=== PATIENT | female | born 1940 | race Caucasian/White ===

== ENCOUNTER → 2016-11-15 | Outpatient (CLI) | payer MEDICARE, MEDICAID ==
[~2016-11-15] MED LIST: BACTROBAN OINT22 GM PO; CEFADROXIL500 MG PO; CHOLESTEROL; CLINDAMYCIN150 MG PO; DARVOCET N 1001 TAB PO; DEMEDEX; HYZAAR 50/12.5M1 TAB; LISINOPRIL; LISINOPRIL/HCTZ; LISINOPRIL10 MG PO; Meclizine25 MG PO; NAPROSYN500 MG PO; NAPROXEN550 MG PO; NORCO 325 MG-51 TAB PO; OMEPRAZOLE20 MG; PRILOSEC OTC20 MG PO; SIMVASTATIN20 MG PO; SOMA250 MG PO; ULTRAM50 MG PO; Vicodin 5/500 505 MG PO
[2016-11-15 10:50] LABS: HEMATOCRIT 33.1 % (37.0-47.0); HEMOGLOBIN 10.9 g/dl (12.0-16.0); MEAN CELL VOLUME 98.2 fl (81.0-99.0); MEAN CORPUSCULAR HGB 32.3 pg (27.0-31.0); MEAN CORPUSCULAR HGB CONC 32.9 g/dl (33.0-37.0); MEAN PLATELET VOLUME 9.4 fl (9.6-12.3); RED BLOOD COUNT 3.37 10*6/uL (4.10-5.10); RED CELL DISTRI WIDTH 12.6 % (0-14.5); WHITE BLOOD COUNT 9.9 10*3/uL (4.8-10.8)
[2016-11-15 11:15] LABS: ALBUMIN 3.7 gm/dl (3.1-4.5); BILIRUBIN, TOTAL 0.3 mg/dl (0.2-1.0); POTASSIUM 3.8 mmol/L (3.5-5.1); TOTAL PROTEIN 6.9 gm/dL (6.4-8.2)
[2016-11-15 11:17] LABS: CHOLESTEROL 211 mg/dL (<200); HDL CHOLESTEROL 52 mg/dl (40-60); LDL CHOLESTEROL 97 mg/dL (9-159); TRIGLYCERIDES 312 mg/dl (<150); VLDL CHOLESTEROL 62 mg/dL (6-40)
== END | disposition home or self-care (01) ==
LOC: LAB 10:28
PROVIDERS: Family Medicine
DX: K21.9 Gastro-esophageal reflux disease without esophagitis (principal); E78.00 Pure hypercholesterolemia, unspecified; E55.9 Vitamin D deficiency, unspecified

== ENCOUNTER → 2017-10-06 | Outpatient (CLI) | payer MEDICARE, MEDICAID ==
[2017-10-06 11:15] LABS: HEMATOCRIT 33.9 % (37.0-47.0); HEMOGLOBIN 11.4 g/dl (12.0-16.0); MEAN CELL VOLUME 95.5 fl (81.0-99.0); MEAN CORPUSCULAR HGB 32.1 pg (27.0-31.0); MEAN CORPUSCULAR HGB CONC 33.6 g/dl (33.0-37.0); RED BLOOD COUNT 3.55 10*6/uL (4.10-5.10); RED CELL DISTRI WIDTH 12.3 % (0-14.5); WHITE BLOOD COUNT 7.3 10*3/uL (4.8-10.8)
[2017-10-06 11:36] LABS: ALBUMIN 3.5 gm/dl (3.1-4.5); CREATININE 1.22 mg/dL (0.55-1.02); POTASSIUM 3.9 mmol/L (3.5-5.1)
[2017-10-06 12:53] LABS: VITAMIN D, 25-HYDROXY 80.4 ng/mL (30-100)
== END | disposition home or self-care (01) ==
LOC: LAB 10:40
PROVIDERS: Family Medicine
DX: E78.00 Pure hypercholesterolemia, unspecified (principal); E55.9 Vitamin D deficiency, unspecified; D64.9 Anemia, unspecified; I10 Essential (primary) hypertension; R53.83 Other fatigue; K21.9 Gastro-esophageal reflux disease without esophagitis

== ENCOUNTER → 2018-01-03 | Outpatient (CLI) | payer MEDICARE, MEDICAID ==
[2018-01-03 11:35] LABS: HEMATOCRIT 35.4 % (37.0-47.0); HEMOGLOBIN 11.2 g/dl (12.0-16.0); MEAN CELL VOLUME 95.9 fl (81.0-99.0); MEAN CORPUSCULAR HGB 30.4 pg (27.0-31.0); MEAN CORPUSCULAR HGB CONC 31.6 g/dl (33.0-37.0); MEAN PLATELET VOLUME 9.5 fl (9.6-12.3); RED BLOOD COUNT 3.69 10*6/uL (4.10-5.10); RED CELL DISTRI WIDTH 13.2 % (0-14.5); WHITE BLOOD COUNT 7.3 10*3/uL (4.8-10.8)
[2018-01-03 12:02] LABS: ALBUMIN 3.4 gm/dl (3.1-4.5); CREATININE 1.29 mg/dL (0.55-1.02); POTASSIUM 4.2 mmol/L (3.5-5.1); TOTAL PROTEIN 7.1 gm/dL (6.4-8.2)
== END | disposition home or self-care (01) ==
LOC: LAB 11:08
PROVIDERS: Family Medicine
DX: N18.3 Chronic kidney disease, stage 3 (moderate) (principal); D63.1 Anemia in chronic kidney disease; E78.00 Pure hypercholesterolemia, unspecified; E53.8 Deficiency of other specified B group vitamins

== ENCOUNTER 2019-05-08 15:11 | Inpatient (IN) | payer OTHER ==
[~2019-05-08] VITALS: Ht 160 cm; Wt 66.2 kg
--- NOTE | ~2019-05-08 | ST ---
[place], [place] EXERCISE STRESS TEST REPORT NAME: LACI SÁNCHEZ [facility] #: [id number] UNIT #: [id number] ROOM: 408 DOCTOR: CARINE MCKENZIE MD BIRTHDATE: [birth year] DOS: 05/09/2019 LEXISCAN STRESS EKG REPORT REFERRING PHYSICIAN: Dr. Graf. INDICATION: Precordial chest pain. The patient underwent standard protocol Lexiscan stress EKG. Baseline EKG showed normal sinus, heart rate of 71 with blood pressure 112/58. Peak heart rate was 115 with a blood pressure 130/68. The patient had no chest pain, no ischemic changes. No significant arrhythmias. SUMMARY OF FINDINGS: Unremarkable Lexiscan stress EKG. Please see separate report for perfusion scan imaging results. CARINE MCKENZIE MD CM:STRESS:EXERCISE STRESS TEST REPORT [id number] CARINE MCKENZIE MD
--- NOTE | ~2019-05-08 | EKG ---
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
--- NOTE | ~2019-05-08 | EKG ---
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
--- NOTE | ~2019-05-08 | WRIGHTHP ---
[place], [place] PATIENT HISTORY AND PHYSICAL EXAM NAME: LACI SÁNCHEZ [facility] #: [id number] UNIT #: [id number] ROOM: 408 DOCTOR: CAMILO SMILEY MD BIRTHDATE: [birth year] DOS: 05/08/2019 HISTORY OF PRESENT ILLNESS: The patient is a 78-year-old female with a past medical history of: 1. Benign essential hypertension, generalized anxiety disorder, hiatal hernia. 2. Hyperlipidemia, nicotine smoke dependence, chronic lower back arthritic pains. 3. Skin cancer of the right temporal area. The patient presented to the Emergency Department with complaints of left-sided chest pains and left arm pains, recurrent for a couple of weeks. The patient is at high risk for coronary artery disease because of smoking cigarettes, high cholesterol, and hypertension. The patient was admitted and Cardiology was consulted. Cardiac enzymes are being performed. It was slightly elevated. REVIEW OF SYSTEMS CARDIOVASCULAR: Recurrent chest pain. GASTROINTESTINAL: No nausea, vomiting, diarrhea or constipation. RESPIRATORY: Chronic shortness of breath. ALLERGIES: No known drug allergies. PHYSICAL EXAMINATION: GENERAL: Alert and oriented x 3, generalized weakness. VITAL SIGNS: Blood pressure 142/51, heart rate 69 beats per minute, breathing 16 times per minute, temperature 98 degrees Fahrenheit. HEENT AND NECK: Extraocular movements are intact. Sclerae are anicteric. Oral mucosa is moist and clean. No obvious facial weakness. Neck is supple without any lymphadenopathy. No thyromegaly. No JVD. No carotid arterial bruits. LUNGS: Decreased breath sounds on lung auscultation all over. CARDIOVASCULAR SYSTEM: Heart rate is regular in rate and rhythm. S1 and S2 normally audible. No significant murmur or any other abnormal cardiac sounds. ABDOMEN: Soft, nontender. No obvious organomegaly. Bowel sounds are present. No obvious herniation. EXTREMITIES: Without significant cyanosis or edema. Warm to touch. CENTRAL NERVOUS SYSTEM: Alert and oriented x 3. Cranial nerves II-XII are intact. Speech is normal. The patient is able to move all extremities. Normal muscle strength. Deep tendon reflexes are equal on both sides. Plantars were downgoing. LABORATORY DATA: Mild elevation of troponin levels. Cardiology consult. Chest x-ray showing opacity in the left lower lung zone, hemoglobin 10.7. IMPRESSION: 1. Recurrent left-sided and precordial chest pain and left arm, chest pains, being evaluated by Cardiology. Cardiac enzymes negative so far. 2. Smoking history with left lower lobe opacity to be evaluated for malignancy by Dr. Varela. Consult is being obtained. 2. Mixed hyperlipidemia, diet controlled. 3. Centrilobular emphysema. The patient on DuoNebs for advanced lung disease. [place], [place] PATIENT HISTORY AND PHYSICAL EXAM NAME: [facility] [id number] UNIT #: [id number] ROOM: [facility] DOCTOR: CAMILO SMILEY MD BIRTHDATE: [birth year] 4. POLLEN ALLERGIES. Treated and controlled with loratadine. 5. Gastroesophageal reflux disease and esophagitis, asymptomatic with omeprazole. CAMILO SMILEY MD CM:HISPHYS:PATIENT HISTORY AND PHYSICAL EXAMINATION 20 35 CAMILO SMILEY MD 05/08/192034 interface
--- NOTE | ~2019-05-08 | DS ---
[place], [place] DISCHARGE SUMMARY NAME: LACI SÁNCHEZ UNIT #: [id number] ROOM: 408 DOCTOR: CAMILO SMILEY MD BIRTHDATE: [birth year] DOS: 05/09/2019 DISCHARGE DIAGNOSES: 1. Left-sided and precordial chest pains with normal cardiac stress test. 2. Smoking history with left lower lobe opacity, needs to be evaluated by Dr. Varela for malignancy. 3. Mixed hyperlipidemia, diet controlled. 4. Centrilobular emphysema. 5. Chronic obstructive pulmonary disease with advanced lung disease. 6. POLLEN allergies. 7. Gastroesophageal reflux disease and esophagitis. 8. Skin cancer in the right temporal area. 9. Mixed hyperlipidemia. 10. Nicotine smoke dependence. 11. Chronic lower back pains and arthritis. 12. Benign essential hypertension. 13. Generalized anxiety disorder. 14. Hiatal hernia. HOSPITAL COURSE: The patient presented to the Emergency Department with left-sided and precordial and left arm pains, chest pains, recurrent for a couple of weeks. The patient was admitted. Cardiac enzymes were checked and she underwent cardiac stress testing and an echocardiogram by Dr. Fields, which were normal and she will be discharged to home to follow up with her PCP within a week. Mixed hyperlipidemia, diet controlled. Nicotine smoke dependence. The patient has been encouraged to stop smoking cigarettes. Left lower lobe opacity, needs to be evaluated by slabber light, Dr. Varela for malignancy as an outpatient. GERD and esophagitis, asymptomatic with omeprazole. POLLEN allergies, treated with loratadine. [place], [place] DISCHARGE SUMMARY NAME: LACI SÁNCHEZ UNIT #: [id number] ROOM: 408 DOCTOR: CAMILO SMILEY MD BIRTHDATE: [birth year] CAMILO SMILEY MD CM:DISCHARG 29 CAMILO SMILEY MD 05/10/19 0233 interface
--- NOTE | ~2019-05-08 | EKG ---
[place], [place] ELECTROCARDIOGRAM REPORT NAME: LACI SÁNCHEZ UNIT #: [id number] ROOM: 408 DOCTOR: KEMI DRAFT REPORT BIRTHDATE: [birth year] [facility] Test Date: 2019-05-08 Test Time: 21:03:57 Pat Name: LACI SÁNCHEZ Department: Room: [facility] Gender: F Lab Rn: SS RESP : 1940 Requested By: DYLAN ALARCON Order Number: [id number] Reading MD: James Fields MD Measurements Intervals [place] Rate: 74 P: 80 [place]: 147 QRS: 52 QRSD: 76 T: 38 QT: 425 QTc: 472 Interpretive Statements Sinus rhythm Low voltage, extremity leads Nonspecific T abnormalities, lateral leads Baseline wander in lead(s) II Electronically Signed On 05-09-2019 12:30:20 PDT by James Fields MD CM:EKGRPT:ELECTROCARDIOGRAM REPORT 02 1230 DYLAN MCMULLEN DRAFT REPORT DYLAN ALARCON MD
[2019-05-08 15:14] VITALS: BP 165/53
[2019-05-08 16:23] LABS: BASO # 0.1 10*3/uL (0.0-0.1); BASO % 0.7 % (0.0-1.0); EOS # 0.1 10*3/uL (0.0-0.4); EOS % 0.7 % (1.0-4.0); HEMATOCRIT 33.4 % (37.0-47.0); HEMOGLOBIN 10.7 g/dl (12.0-16.0); LYMPH # 2.7 10*3/uL (1.3-4.4); LYMPH % 36.9 % (27.0-41.0); MEAN CELL VOLUME 95.7 fl (81.0-99.0); MEAN CORPUSCULAR HGB 30.7 pg (27.0-31.0); MEAN PLATELET VOLUME 9.8 fl (9.6-12.3); MONO # 0.4 10*3/uL (0.1-1.0); MONO % 5.1 % (3.0-9.0); NEUT # 4.1 10*3/uL (2.3-7.9); NEUT % 56.3 % (47.0-73.0); PLATELET COUNT AUTOMATED 269 10*3/uL (130-400); RED BLOOD COUNT 3.49 10*6/uL (4.10-5.10); RED CELL DISTRI WIDTH 13.8 % (0-14.5); WHITE BLOOD COUNT 7.2 10*3/uL (4.8-10.8)
[2019-05-08 16:26] VITALS: BP 142/51
[2019-05-08 16:40] LABS: ALBUMIN 3.4 gm/dl (3.1-4.5); CREATININE 1.29 mg/dL (0.55-1.02); POTASSIUM 3.6 mmol/L (3.5-5.1); TOTAL PROTEIN 6.6 gm/dL (6.4-8.2)
[2019-05-08 16:43] LABS: ACT PARTIAL THROMBO TIME 23.8 SECONDS (20.0-32.1); INTERNATIONAL NORM RATIO 0.9 (2.0-3.5)
[2019-05-08 16:47] LABS: TROPONIN I 0.069 ng/ml (<0.045)
--- NOTE | 2019-05-08 16:48 | NUR ---
PATIENT TROPONIN CRITICAL AT THIS TIME CALLED 0.069. DR ALARCON NOTIFIED.
--- NOTE | 2019-05-08 17:10 | NUR ---
A 78, admitted to 4E, under the services of Dr. BALJIT LUGO,CAMILO Chowdary with a diagnosis of CHEST PAIN. Chief complaint is LEFT AXILA PAIN. Patient arrived via bed from ER. Monitor applied. Initial assessment completed. Vital signs taken and recorded. DR. BALJIT LUGO,CAMILO Chowdary notified of admission to the unit. Orders received. See assessment for past medical history, medications and allergies. Patient and/or family oriented to unit. [facility] 5E visitation policy reviewed. Clothing/patient valuable form completed. SKIN INTACT WITH NO WOUNDS LE BRASWELL
[2019-05-08] MEDS ORDERED: GOOD NEIGHBOR L10 MG PO (17:26)
[2019-05-08] MEDS ORDERED: OMEPRAZOLE40 MG PO (17:26)
--- NOTE | 2019-05-08 17:38 | NUR ---
PT IN ROOM. DR SMILEY NOTIFIED. ORDERS RECEIVED
--- NOTE | 2019-05-08 17:42 | NUR ---
CALLED [facility] ANSWERING SERVICE REGARDING NEW PT CONSULT. WAITING BLOOD BANK LABORATORY TECHNICIAN BACK.
--- NOTE | 2019-05-08 17:47 | NUR ---
DR MCKENZIE RETURNED CALL. ORDERS RECEIVED.
[2019-05-08 20:00] VITALS: BP 133/47
[2019-05-09] VITALS: BP 117/54
[2019-05-09 08:00] VITALS: BP 120/58
--- NOTE | 2019-05-09 08:25 | NUR ---
INFORMED CONSENT OBTAINED FOR A LEXISCAN STRESS TEST WITH DR. MCKENZIE. RESTING EKG NSR WITH A HT RT OF 71 AND A BP OF 112/58. BREATH SOUNDS SCATTERED RHONCHI WITH A POX OF 94% VIA RA. COMPLETED OME MINUTE OF A LEXISCAN PROTOCOL RECEIVING LEXISCAN 0.4 MG OVER 10 SECONDS. DEVELOPED "SHORTNESS OF BREATH, HEADACHE, AND STOMACH CRAMPING" THAT WAS RELIEVED IN RECOVERY. HAD A PEAK HT RT OF 106, WITH A BP OF 124/60. LAST RECOVERY HT RT OF 98, WITH A BP OF 130/68. AWAITING NUCLEAR IMAGING IN STABLE CONDITION.
--- NOTE | 2019-05-09 08:30 | NUR ---
M1A1 Tank Crewman in to see patient. She is currently not in her room. She is in cardiac rehab having a stress test. Will follow up at a later time.
[2019-05-09 12:00] VITALS: BP 127/52
--- NOTE | 2019-05-09 12:25 | NUR ---
Human Resources Talent Manager in to talk to patient. Patient states lives at home with her daughter, disabled granddaughter, and grandson. There are 0 steps in the home. Physician: Dr. Minh Clay [facility]acy: [facility] Home health services: none Patient's level of ADLs: INDEPENDENT Patient has working utilities: yes DME: none Follow-up physician's appointment after d/c: she prefers to make her own follow up appt after discharge Does patient want to access PORTAL?: no Discharge plan discussed with patient. She lives at home with her family. She is independent in her ADLs and ambulation. Discussed home health care services and she denies any home needs at this time. When medically stable she will be discharged to home. ALEYDA WIN
[2019-05-09 16:00] VITALS: BP 140/79
--- NOTE | 2019-05-09 19:50 | NUR ---
Discharge instructions reviewed with patient/family. Patient receptive and verbalizes understanding. Follow-up care arranged. Written instructions given to patient/family. ANABELA PARRISH
== END 2019-05-09 19:50 | disposition home or self-care (01) | DRG 206 ==
LOC: ED 15:11 → 4E 16:31 → EDHOLD 16:31 → 4E 17:13
PROVIDERS: Emergency Medicine; ADMIT Internal Medicine
DX: M94.0 Chondrocostal junction syndrome [Tietze] (principal); R07.2 Precordial pain; J43.2 Centrilobular emphysema; E78.2 Mixed hyperlipidemia; K44.9 Diaphragmatic hernia without obstruction or gangrene; K21.0 Gastro-esophageal reflux disease with esophagitis; R74.8 Abnormal levels of other serum enzymes; C44.40 Unspecified malignant neoplasm of skin of scalp and neck; M19.90 Unspecified osteoarthritis, unspecified site; F41.1 Generalized anxiety disorder; G89.29 Other chronic pain; M54.5 Low back pain; F17.210 Nicotine dependence, cigarettes, uncomplicated; E78.5 Hyperlipidemia, unspecified; I12.9 Hypertensive chronic kidney disease with stage 1 through stage 4 chronic kidney disease, or unspecified chronic kidney disease; N18.9 Chronic kidney disease, unspecified; Z83.3 Family history of diabetes mellitus; Z91.048 Other nonmedicinal substance allergy status

== ENCOUNTER → 2020-04-11 | Outpatient (CLI) | payer OTHER ==
[~2020-04-11] MED LIST changes: +GOOD NEIGHBOR L10 MG PO; +OMEPRAZOLE40 MG PO
== END | disposition home or self-care (01) ==
LOC: MRI 12:27
DX: G44.029 Chronic cluster headache, not intractable (principal); R42 Dizziness and giddiness; R53.1 Weakness

== ENCOUNTER → 2020-04-17 | Outpatient (CLI) | payer OTHER | END | disposition home or self-care (01) | LOC: RAD 14:43 | DX: M25.551 Pain in right hip (principal) ==

== ENCOUNTER → 2020-06-23 | Outpatient (CLI) | payer OTHER ==
[2020-06-23 14:41] LABS: HEMATOCRIT 34.9 % (37.0-47.0); MEAN CELL VOLUME 97.5 fl (81.0-99.0); MEAN CORPUSCULAR HGB 31.8 pg (27.0-31.0); MEAN CORPUSCULAR HGB CONC 32.7 g/dl (33.0-37.0); MEAN PLATELET VOLUME 9.2 fl (9.6-12.3); RED BLOOD COUNT 3.58 10*6/uL (4.10-5.10); RED CELL DISTRI WIDTH 13.1 % (0-14.5); WHITE BLOOD COUNT 7.3 10*3/uL (4.8-10.8)
[2020-06-23 15:11] LABS: ALBUMIN 3.5 gm/dl (3.1-4.5); CREATININE 1.55 mg/dL (0.55-1.02); FREE T4 0.96 ng/dl (0.76-1.46); POTASSIUM 4.4 mmol/L (3.5-5.1); TOTAL PROTEIN 7.2 gm/dL (6.4-8.2)
[2020-06-23 15:15] LABS: THYROID STIM HORMONE (HS) 3.05 uIU/ml (0.358-4.75)
== END | disposition home or self-care (01) ==
LOC: LAB 13:56
PROVIDERS: Family Medicine
DX: R53.83 Other fatigue (principal); E78.00 Pure hypercholesterolemia, unspecified; E55.9 Vitamin D deficiency, unspecified; D64.9 Anemia, unspecified; K21.9 Gastro-esophageal reflux disease without esophagitis; M19.90 Unspecified osteoarthritis, unspecified site

== ENCOUNTER 2020-09-12 12:46 | Emergency (ER) | payer OTHER ==
[~2020-09-12] VITALS: Wt 63.5 kg
[2020-09-12 14:31] LABS: BASO # 0.1 10*3/uL (0.0-0.1); BASO % 0.7 % (0.0-1.0); EOS % 0.3 % (1.0-4.0); HEMATOCRIT 34.3 % (37.0-47.0); LYMPH % 27.9 % (27.0-41.0); MEAN CELL VOLUME 96.9 fl (81.0-99.0); MEAN CORPUSCULAR HGB 31.1 pg (27.0-31.0); MEAN CORPUSCULAR HGB CONC 32.1 g/dl (33.0-37.0); MEAN PLATELET VOLUME 8.8 fl (9.6-12.3); MONO # 0.3 10*3/uL (0.1-1.0); MONO % 4.8 % (3.0-9.0); NEUT # 4.7 10*3/uL (2.3-7.9); NEUT % 66.2 % (47.0-73.0); PLATELET COUNT AUTOMATED 267 10*3/uL (130-400); RED BLOOD COUNT 3.54 10*6/uL (4.10-5.10); RED CELL DISTRI WIDTH 12.5 % (0-14.5); WHITE BLOOD COUNT 7.1 10*3/uL (4.8-10.8)
[2020-09-12 14:46] LABS: ALBUMIN 3.4 gm/dl (3.1-4.5); CREATININE 1.37 mg/dL (0.55-1.02); POTASSIUM 4.4 mmol/L (3.5-5.1); TOTAL PROTEIN 6.7 gm/dL (6.4-8.2)
[2020-09-12] MEDS ORDERED: FLAGYL500 MG PO (16:49)
[2020-09-12] MEDS ORDERED: CIPRO500 MG PO (16:49)
== END 2020-09-12 16:58 | disposition home or self-care (01) ==
LOC: ED 12:46
PROVIDERS: Nurse Practitioner Family
DX: K81.0 Acute cholecystitis (principal); Z79.899 Other long term (current) drug therapy

== ENCOUNTER 2020-11-20 13:53 | Emergency (ER) | payer OTHER ==
[~2020-11-20] VITALS: Ht 160 cm; Wt 56.7 kg
[~2020-11-20 13:53] MED LIST changes: +CIPRO500 MG PO; +FLAGYL500 MG PO
[2020-11-20 14:25] LABS: BASO % 0.6 % (0.0-1.0); EOS % 0.1 % (1.0-4.0); HEMATOCRIT 34.4 % (37.0-47.0); LYMPH # 1.7 10*3/uL (1.3-4.4); LYMPH % 24.1 % (27.0-41.0); MEAN CELL VOLUME 95.8 fl (81.0-99.0); MEAN CORPUSCULAR HGB 30.6 pg (27.0-31.0); MEAN PLATELET VOLUME 8.9 fl (9.6-12.3); MONO # 0.3 10*3/uL (0.1-1.0); NEUT # 5.1 10*3/uL (2.3-7.9); NEUT % 70.9 % (47.0-73.0); PLATELET COUNT AUTOMATED 288 10*3/uL (130-400); RED BLOOD COUNT 3.59 10*6/uL (4.10-5.10); RED CELL DISTRI WIDTH 13.1 % (0-14.5); WHITE BLOOD COUNT 7.2 10*3/uL (4.8-10.8)
[2020-11-20 14:36] LABS: ACT PARTIAL THROMBO TIME 27.3 SECONDS (20.0-32.1)
[2020-11-20 14:43] LABS: ALBUMIN 3.5 gm/dl (3.1-4.5); CREATININE 1.43 mg/dL (0.55-1.02); POTASSIUM 4.1 mmol/L (3.5-5.1); TOTAL PROTEIN 6.8 gm/dL (6.4-8.2)
[2020-11-20 14:51] LABS: TROPONIN I 0.067 ng/ml (<0.045)
[2020-11-28] MEDS ORDERED: POTASSIUM CHLO20 ME4 PO (14:01)
[2020-12-04] MEDS ORDERED: PERCOCET 5-3251 EACH PO (10:46)
[2020-12-04] MEDS ORDERED: ZOFRAN4 MG PO (10:46)
[2020-12-04] MEDS ORDERED: COLACE100 MG PO (10:46)
== END 2020-11-20 18:33 | disposition home or self-care (01) ==
LOC: ED 13:53
PROVIDERS: Emergency Medicine
DX: K80.50 Calculus of bile duct without cholangitis or cholecystitis without obstruction (principal); N18.30 Chronic kidney disease, stage 3 unspecified; R74.8 Abnormal levels of other serum enzymes; Z79.899 Other long term (current) drug therapy

== ENCOUNTER → 2020-11-27 | Outpatient (CLI) | payer OTHER ==
[~2020-11-27] MED LIST changes: +COLACE100 MG PO; +PERCOCET 5-3251 EACH PO; +POTASSIUM CHLO20 ME4 PO; +ZOFRAN4 MG PO
[2020-11-27 13:13] LABS: HEMATOCRIT 35.5 % (37.0-47.0); MEAN CELL VOLUME 97.5 fl (81.0-99.0); MEAN CORPUSCULAR HGB 31.3 pg (27.0-31.0); MEAN CORPUSCULAR HGB CONC 32.1 g/dl (33.0-37.0); RED BLOOD COUNT 3.64 10*6/uL (4.10-5.10); RED CELL DISTRI WIDTH 13.4 % (0-14.5); WHITE BLOOD COUNT 6.3 10*3/uL (4.8-10.8)
[2020-11-27 13:24] LABS: ACT PARTIAL THROMBO TIME 27.5 SECONDS (20.0-32.1)
[2020-11-27 13:29] LABS: ALBUMIN 3.6 gm/dl (3.1-4.5); CREATININE 1.41 mg/dL (0.55-1.02); POTASSIUM 4.3 mmol/L (3.5-5.1)
== END | disposition home or self-care (01) ==
LOC: LAB 12:45
PROVIDERS: ATTEND Family Medicine
DX: K21.9 Gastro-esophageal reflux disease without esophagitis (principal); K81.0 Acute cholecystitis; R10.9 Unspecified abdominal pain; R53.83 Other fatigue

== ENCOUNTER → 2020-11-29 | Outpatient (CLI) | payer OTHER | END | disposition home or self-care (01) | LOC: COVID19 12:03 | PROVIDERS: ATTEND Surgery | DX: Z01.812 Encounter for preprocedural laboratory examination (principal); Z20.822 Contact with and (suspected) exposure to COVID-19 ==

== ENCOUNTER → 2020-12-04 | Day surgery (SDC) | payer OTHER ==
[2020-11-28 14:02] VITALS: BP 147/65
[~2020-12-04] VITALS: Ht 160 cm; Wt 56.7 kg
[2020-12-04] VITALS (9 sets, daily range): BP systolic 115–191; BP diastolic 52–102
== END | disposition home or self-care (01) ==
LOC: SDC 11-28 14:00
PROVIDERS: ATTEND Surgery
DX: K80.10 Calculus of gallbladder with chronic cholecystitis without obstruction (principal); I10 Essential (primary) hypertension; F41.9 Anxiety disorder, unspecified; F17.210 Nicotine dependence, cigarettes, uncomplicated; Z79.899 Other long term (current) drug therapy

== ENCOUNTER 2022-08-14 10:31 | Emergency (ER) | payer OTHER ==
[~2022-08-14] VITALS: Wt 41.3 kg
[2022-08-14 11:53] LABS: BASO % 0.7 % (0.0-1.0); EOS % 0.9 % (1.0-4.0); HEMATOCRIT 32.6 % (37.0-47.0); LYMPH # 1.9 10*3/uL (1.3-4.4); LYMPH % 44.1 % (27.0-41.0); MEAN CELL VOLUME 102.8 fl (81.0-99.0); MEAN CORPUSCULAR HGB 33.8 pg (27.0-31.0); MEAN CORPUSCULAR HGB CONC 32.8 g/dl (33.0-37.0); MONO # 0.2 10*3/uL (0.1-1.0); MONO % 5.4 % (3.0-9.0); NEUT # 2.1 10*3/uL (2.3-7.9); NEUT % 48.9 % (47.0-73.0); PLATELET COUNT AUTOMATED 255 10*3/uL (130-400); RED BLOOD COUNT 3.17 10*6/uL (4.10-5.10); RED CELL DISTRI WIDTH 12.9 % (0-14.5); WHITE BLOOD COUNT 4.3 10*3/uL (4.8-10.8)
[2022-08-14 12:49] LABS: CREATININE 1.3 mg/dL (0.55-1.02)
== END 2022-08-14 13:28 | disposition home or self-care (01) ==
LOC: ED 10:31
PROVIDERS: Internal Medicine
DX: M54.50 Low back pain, unspecified (principal); F17.200 Nicotine dependence, unspecified, uncomplicated; Z98.51 Tubal ligation status; Z79.899 Other long term (current) drug therapy; W01.198A Fall on same level from slipping, tripping and stumbling with subsequent striking against other object, initial encounter; Y93.01 Activity, walking, marching and hiking; Y92.89 Other specified places as the place of occurrence of the external cause; Y99.9 Unspecified external cause status

== ENCOUNTER → 2022-09-01 | Outpatient (CLI) | payer OTHER ==
[2022-09-01 11:25] LABS: HEMATOCRIT 33.3 % (37.0-47.0); MEAN CELL VOLUME 104.4 fl (81.0-99.0); MEAN CORPUSCULAR HGB 33.9 pg (27.0-31.0); MEAN CORPUSCULAR HGB CONC 32.4 g/dl (33.0-37.0); MEAN PLATELET VOLUME 8.7 fl (9.6-12.3); RED BLOOD COUNT 3.19 10*6/uL (4.10-5.10); RED CELL DISTRI WIDTH 12.9 % (0-14.5); WHITE BLOOD COUNT 4.9 10*3/uL (4.8-10.8)
[2022-09-01 11:44] LABS: CREATININE 1.18 mg/dL (0.55-1.02); POTASSIUM 3.7 mmol/L (3.5-5.1); TOTAL PROTEIN 6.2 gm/dL (6.4-8.2)
[2022-09-01 12:15] LABS: VITAMIN D, 25-HYDROXY 30.6 ng/mL (30-100)
== END | disposition home or self-care (01) ==
LOC: LAB 10:45
PROVIDERS: ATTEND Family Medicine
DX: N18.30 Chronic kidney disease, stage 3 unspecified (principal); E55.9 Vitamin D deficiency, unspecified; K21.9 Gastro-esophageal reflux disease without esophagitis; M54.50 Low back pain, unspecified; R53.83 Other fatigue; D63.1 Anemia in chronic kidney disease; Z79.899 Other long term (current) drug therapy

== ENCOUNTER 2022-10-15 14:32 | Emergency (ER) | payer OTHER ==
[~2022-10-15] VITALS: Wt 39.0 kg
[2022-10-15 16:41] LABS: BASO % 0.5 % (0.0-1.0); EOS % 0.7 % (1.0-4.0); HEMATOCRIT 33.4 % (37.0-47.0); LYMPH # 2.3 10*3/uL (1.3-4.4); LYMPH % 42.2 % (27.0-41.0); MEAN CELL VOLUME 101.2 fl (81.0-99.0); MEAN CORPUSCULAR HGB CONC 32.6 g/dl (33.0-37.0); MEAN PLATELET VOLUME 8.6 fl (9.6-12.3); MONO # 0.3 10*3/uL (0.1-1.0); MONO % 4.9 % (3.0-9.0); NEUT # 2.8 10*3/uL (2.3-7.9); NEUT % 51.5 % (47.0-73.0); PLATELET COUNT AUTOMATED 257 10*3/uL (130-400); RED CELL DISTRI WIDTH 12.4 % (0-14.5); WHITE BLOOD COUNT 5.5 10*3/uL (4.8-10.8)
[2022-10-15 17:01] LABS: CREATININE 1.15 mg/dL (0.55-1.02); POTASSIUM 3.8 mmol/L (3.4-5.1); TOTAL PROTEIN 6.2 gm/dL (6.0-8.0)
== END 2022-10-15 18:22 | disposition home or self-care (01) ==
LOC: ED 14:32
PROVIDERS: Student in an Organized Health Care Education/Training Program
DX: R64 Cachexia (principal); Z20.822 Contact with and (suspected) exposure to COVID-19; M54.9 Dorsalgia, unspecified; Z79.899 Other long term (current) drug therapy; Z98.51 Tubal ligation status

== ENCOUNTER 2023-03-21 10:49 | Emergency (ER) | payer OTHER, MEDICAID ==
[2023-03-21 11:56] LABS: BASO % 0.8 % (0.0-1.0); EOS # 0.1 10*3/uL (0.0-0.4); EOS % 2.5 % (1.0-4.0); HEMATOCRIT 30.4 % (37.0-47.0); LYMPH # 1.9 10*3/uL (1.3-4.4); LYMPH % 38.5 % (27.0-41.0); MEAN CORPUSCULAR HGB 33.9 pg (27.0-31.0); MEAN CORPUSCULAR HGB CONC 33.9 g/dl (33.0-37.0); MEAN PLATELET VOLUME 8.8 fl (9.6-12.3); MONO # 0.3 10*3/uL (0.1-1.0); MONO % 6.2 % (3.0-9.0); NEUT # 2.5 10*3/uL (2.3-7.9); NEUT % 51.8 % (47.0-73.0); PLATELET COUNT AUTOMATED 266 10*3/uL (130-400); RED BLOOD COUNT 3.04 10*6/uL (4.10-5.10); RED CELL DISTRI WIDTH 12.3 % (0-14.5); WHITE BLOOD COUNT 4.9 10*3/uL (4.8-10.8)
[2023-03-21 12:22] LABS: ALKALINE PHOSPHATASE 52 U/L (46-116); BUN 18 mg/dl (9-23); CHLORIDE 109 mmol/L (98-107); POTASSIUM 3.5 mmol/L (3.4-5.1); TOTAL PROTEIN 6.1 gm/dL (6.0-8.0)
[2023-03-21 12:24] LABS: SGPT/ALT < 7 U/L (10-49)
== END 2023-03-21 13:47 | disposition home or self-care (01) ==
LOC: ED 10:49
PROVIDERS: Nurse Practitioner Family
DX: M19.011 Primary osteoarthritis, right shoulder (principal); R64 Cachexia; I10 Essential (primary) hypertension; F41.9 Anxiety disorder, unspecified; Z68.1 Body mass index [BMI] 19.9 or less, adult; Z98.51 Tubal ligation status; Z98.890 Other specified postprocedural states

== ENCOUNTER → 2023-03-24 | Outpatient (CLI) | payer OTHER, MEDICAID ==
[2023-03-24 12:04] LABS: VITAMIN D, 25-HYDROXY 30.9 ng/mL (30-100)
== END | disposition home or self-care (01) ==
LOC: LAB 10:15
PROVIDERS: ATTEND Family Medicine
DX: E55.9 Vitamin D deficiency, unspecified (principal); E03.9 Hypothyroidism, unspecified; M25.50 Pain in unspecified joint; R53.83 Other fatigue; K21.9 Gastro-esophageal reflux disease without esophagitis; M79.10 Myalgia, unspecified site

== ENCOUNTER 2023-07-24 13:24 | Emergency (ER) | payer OTHER, MEDICAID ==
[~2023-07-24] VITALS: Wt 42.2 kg
[2023-07-24] MEDS ORDERED: PREDNISONE50 MG PO (15:30)
== END 2023-07-24 15:34 | disposition home or self-care (01) ==
LOC: ED 13:24
DX: M47.9 Spondylosis, unspecified (principal); M54.40 Lumbago with sciatica, unspecified side; I10 Essential (primary) hypertension; F41.9 Anxiety disorder, unspecified; Z98.51 Tubal ligation status; Z95.5 Presence of coronary angioplasty implant and graft; Z98.890 Other specified postprocedural states

== ENCOUNTER 2023-08-23 16:05 | Emergency (ER) | payer OTHER, MEDICAID ==
[~2023-08-23] VITALS: Ht 157.4 cm; Wt 38.6 kg
[~2023-08-23 16:05] MED LIST changes: +PREDNISONE50 MG PO
[2023-08-23 17:17] LABS: BASO % 0.5 % (0.0-1.0); EOS # 0.2 10*3/uL (0.0-0.4); EOS % 2.8 % (1.0-4.0); HEMATOCRIT 30.4 % (37.0-47.0); LYMPH % 50.6 % (27.0-41.0); MEAN CELL VOLUME 100.7 fl (81.0-99.0); MEAN CORPUSCULAR HGB 33.8 pg (27.0-31.0); MEAN CORPUSCULAR HGB CONC 33.6 g/dl (33.0-37.0); MEAN PLATELET VOLUME 9.1 fl (9.6-12.3); MONO # 0.5 10*3/uL (0.1-1.0); MONO % 7.9 % (3.0-9.0); NEUT # 2.3 10*3/uL (2.3-7.9); PLATELET COUNT AUTOMATED 250 10*3/uL (130-400); RED BLOOD COUNT 3.02 10*6/uL (4.10-5.10); RED CELL DISTRI WIDTH 12.9 % (0-14.5)
[2023-08-23 17:43] LABS: POTASSIUM 3.7 mmol/L (3.4-5.1)
== END 2023-08-23 20:12 | disposition home or self-care (01) ==
LOC: ED 16:05
PROVIDERS: Physician Assistant Medical
DX: R51.9 Headache, unspecified (principal); I10 Essential (primary) hypertension; F41.9 Anxiety disorder, unspecified; M19.90 Unspecified osteoarthritis, unspecified site; Z98.890 Other specified postprocedural states; Z95.5 Presence of coronary angioplasty implant and graft

== ENCOUNTER 2023-09-12 17:34 | Emergency (ER) | payer OTHER, MEDICAID ==
[~2023-09-12] VITALS: Wt 38.1 kg
[2023-09-12 18:38] LABS: BASO # 0.1 10*3/uL (0.0-0.1); BASO % 0.9 % (0.0-1.0); EOS # 0.2 10*3/uL (0.0-0.4); LYMPH # 2.6 10*3/uL (1.3-4.4); LYMPH % 48.7 % (27.0-41.0); MEAN CELL VOLUME 101.3 fl (81.0-99.0); MEAN CORPUSCULAR HGB 33.7 pg (27.0-31.0); MEAN CORPUSCULAR HGB CONC 33.2 g/dl (33.0-37.0); MONO # 0.4 10*3/uL (0.1-1.0); MONO % 6.7 % (3.0-9.0); NEUT # 2.2 10*3/uL (2.3-7.9); NEUT % 40.5 % (47.0-73.0); PLATELET COUNT AUTOMATED 207 10*3/uL (130-400); RED BLOOD COUNT 3.06 10*6/uL (4.10-5.10); RED CELL DISTRI WIDTH 12.6 % (0-14.5); WHITE BLOOD COUNT 5.4 10*3/uL (4.8-10.8)
[2023-09-12 19:05] LABS: ALKALINE PHOSPHATASE 55 U/L (46-116); BUN 26 mg/dl (9-23); CHLORIDE 111 mmol/L (98-107); POTASSIUM 3.6 mmol/L (3.4-5.1); TOTAL PROTEIN 6.1 gm/dL (6.0-8.0)
[2023-09-12 19:06] LABS: SGPT/ALT < 7 U/L (5-49)
[2023-09-12 19:38] LABS: BILIRUBIN Negative (Negative); BLOOD 1+ (Negative); CLARITY Cloudy (Clear); COLOR Dark Yellow (Yellow); GLUCOSE Negative (Negative); KETONE Negative (Negative); LEUKO ESTERASE 1+ (Negative); NITRITE Negative (Negative); SPECIFIC GRAVITY 1.025 (1.001-1.030)
[2023-09-12 19:59] LABS: BACTERIA 1+
== END 2023-09-12 20:53 | disposition left against medical advice (07) ==
LOC: ED 17:34
PROVIDERS: Nurse Practitioner Family
DX: R55 Syncope and collapse (principal); R51.9 Headache, unspecified; K21.9 Gastro-esophageal reflux disease without esophagitis; I10 Essential (primary) hypertension; F41.9 Anxiety disorder, unspecified; Z98.51 Tubal ligation status; Z95.5 Presence of coronary angioplasty implant and graft; Z98.890 Other specified postprocedural states; Z79.899 Other long term (current) drug therapy

== ENCOUNTER → 2023-09-14 | Outpatient (CLI) | payer OTHER, MEDICAID ==
[2023-09-14 11:25] LABS: HEMATOCRIT 33.9 % (37.0-47.0); MEAN CELL VOLUME 100.9 fl (81.0-99.0); MEAN CORPUSCULAR HGB CONC 32.7 g/dl (33.0-37.0); MEAN PLATELET VOLUME 9.4 fl (9.6-12.3); RED BLOOD COUNT 3.36 10*6/uL (4.10-5.10); RED CELL DISTRI WIDTH 12.5 % (0-14.5); WHITE BLOOD COUNT 5.1 10*3/uL (4.8-10.8)
[2023-09-14 12:12] LABS: ALKALINE PHOSPHATASE 56 U/L (46-116); BUN 19 mg/dl (9-23); CHLORIDE 109 mmol/L (98-107); CHOLESTEROL 222 mg/dL (<200); LDL CHOLESTEROL 141 mg/dL (9-159); POTASSIUM 4.1 mmol/L (3.4-5.1); SGPT/ALT < 7 U/L (5-49); TOTAL PROTEIN 6.4 gm/dL (6.0-8.0); TRIGLYCERIDES 122 mg/dl (<150)
== END | disposition home or self-care (01) ==
LOC: LAB 10:55
PROVIDERS: ATTEND Family Medicine
DX: E78.00 Pure hypercholesterolemia, unspecified (principal); K21.9 Gastro-esophageal reflux disease without esophagitis; E55.9 Vitamin D deficiency, unspecified; E87.6 Hypokalemia

== ENCOUNTER → 2023-09-26 | Outpatient (CLI) | payer OTHER, MEDICAID | END | disposition home or self-care (01) | LOC: RAD 13:29 | PROVIDERS: ATTEND Family Medicine | DX: M81.0 Age-related osteoporosis without current pathological fracture (principal) ==

== ENCOUNTER 2023-10-05 10:57 | Emergency (ER) | payer OTHER, MEDICAID ==
[~2023-10-05] VITALS: Ht 134.6 cm; Wt 38.1 kg
== END 2023-10-05 13:39 | disposition left against medical advice (07) ==
LOC: ED 10:57
DX: R22.9 Localized swelling, mass and lump, unspecified (principal); M79.10 Myalgia, unspecified site; Z53.21 Procedure and treatment not carried out due to patient leaving prior to being seen by health care provider

== ENCOUNTER 2023-10-17 12:50 | Emergency (ER) | payer OTHER, MEDICAID ==
[~2023-10-17] VITALS: Ht 154.9 cm; Wt 39.5 kg
[2023-10-17 14:43] LABS: BASO % 0.8 % (0.0-1.0); EOS # 0.2 10*3/uL (0.0-0.4); EOS % 3.3 % (1.0-4.0); HEMATOCRIT 28.4 % (37.0-47.0); LYMPH # 2.4 10*3/uL (1.3-4.4); MEAN CELL VOLUME 103.3 fl (81.0-99.0); MEAN CORPUSCULAR HGB 33.1 pg (27.0-31.0); MONO # 0.4 10*3/uL (0.1-1.0); MONO % 7.6 % (3.0-9.0); NEUT # 1.9 10*3/uL (2.3-7.9); NEUT % 39.1 % (47.0-73.0); PLATELET COUNT AUTOMATED 207 10*3/uL (130-400); RED BLOOD COUNT 2.75 10*6/uL (4.10-5.10); RED CELL DISTRI WIDTH 12.4 % (0-14.5); WHITE BLOOD COUNT 4.9 10*3/uL (4.8-10.8)
[2023-10-17 15:04] LABS: ALKALINE PHOSPHATASE 60 U/L (46-116); BUN 25 mg/dl (9-23); CHLORIDE 111 mmol/L (98-107); POTASSIUM 4.5 mmol/L (3.4-5.1); TOTAL PROTEIN 5.7 gm/dL (6.0-8.0)
[2023-10-17 15:08] LABS: SGPT/ALT < 7 U/L (5-49)
[2023-10-17 15:08] LABS: BILIRUBIN Negative (Negative); BLOOD Trace-Lysed (Negative); CLARITY Clear (Clear); COLOR Yellow (Yellow); GLUCOSE Negative (Negative); KETONE Negative (Negative); LEUKO ESTERASE 1+ (Negative); NITRITE Negative (Negative); UROBILINOGEN 0.2 E.U./dl (0.0-1.0)
[2023-10-17 15:41] LABS: BACTERIA 1+; YEAST TRACE
== END 2023-10-17 15:27 | disposition left against medical advice (07) ==
LOC: ED 12:50
PROVIDERS: Nurse Practitioner Family
DX: R51.9 Headache, unspecified (principal); R55 Syncope and collapse; N18.30 Chronic kidney disease, stage 3 unspecified; Z79.899 Other long term (current) drug therapy; Z53.29 Procedure and treatment not carried out because of patient's decision for other reasons

== ENCOUNTER → 2023-11-08 | Outpatient (CLI) | payer OTHER, MEDICAID | END | disposition home or self-care (01) | LOC: RAD 09:45 | PROVIDERS: ATTEND Family Medicine | DX: M47.816 Spondylosis without myelopathy or radiculopathy, lumbar region (principal); M41.86 Other forms of scoliosis, lumbar region; M48.061 Spinal stenosis, lumbar region without neurogenic claudication; M54.50 Low back pain, unspecified ==

== ENCOUNTER → 2023-12-05 | Outpatient (CLI) | payer OTHER, MEDICAID ==
[2023-12-05 10:53] LABS: MEAN CELL VOLUME 103.6 fl (81.0-99.0); MEAN CORPUSCULAR HGB 33.2 pg (27.0-31.0); MEAN CORPUSCULAR HGB CONC 32.1 g/dl (33.0-37.0); RED BLOOD COUNT 2.8 10*6/uL (4.10-5.10); RED CELL DISTRI WIDTH 14.5 % (0-14.5); WHITE BLOOD COUNT 6.4 10*3/uL (4.8-10.8)
[2023-12-05 11:38] LABS: ALKALINE PHOSPHATASE 59 U/L (46-116); BUN 18 mg/dl (9-23); CHLORIDE 109 mmol/L (98-107); FREE T4 1.14 ng/dl (0.89-1.76); SGPT/ALT < 7 U/L (5-49); TOTAL PROTEIN 6.2 gm/dL (6.0-8.0)
[2023-12-05 11:44] LABS: VITAMIN D, 25-HYDROXY 37.4 ng/mL (30-100)
[2023-12-06 05:07] LABS: HBSAG Negative (Negative); HEP B CORE AB, IGM Negative (Negative); HEPATITIS C ANTIBODY Non Reactive (Non Reactive)
[2023-12-06 13:07] LABS: CCP ANTIBODIES IGG/IGA 5 units (0-19)
== END | disposition home or self-care (01) ==
LOC: LAB 10:19
PROVIDERS: ATTEND Family Medicine
DX: M47.816 Spondylosis without myelopathy or radiculopathy, lumbar region (principal); M47.812 Spondylosis without myelopathy or radiculopathy, cervical region; M48.061 Spinal stenosis, lumbar region without neurogenic claudication; M41.86 Other forms of scoliosis, lumbar region; M50.80 Other cervical disc disorders, unspecified cervical region; M51.86 Other intervertebral disc disorders, lumbar region; E55.9 Vitamin D deficiency, unspecified; K21.9 Gastro-esophageal reflux disease without esophagitis; E78.00 Pure hypercholesterolemia, unspecified; R53.83 Other fatigue; M79.10 Myalgia, unspecified site; M25.50 Pain in unspecified joint; R41.0 Disorientation, unspecified

== ENCOUNTER → 2023-12-23 | Outpatient (CLI) | payer OTHER, MEDICAID | END | disposition home or self-care (01) | LOC: LAB 09:58 | PROVIDERS: ATTEND Family Medicine | DX: M05.70 Rheumatoid arthritis with rheumatoid factor of unspecified site without organ or systems involvement (principal); M25.50 Pain in unspecified joint ==

== ENCOUNTER → 2024-03-13 | Outpatient (CLI) | payer OTHER, MEDICAID | END | disposition home or self-care (01) | LOC: RAD 10:40 | PROVIDERS: ATTEND Family Medicine | DX: M16.12 Unilateral primary osteoarthritis, left hip (principal); M25.552 Pain in left hip; M79.605 Pain in left leg; M17.12 Unilateral primary osteoarthritis, left knee; M47.816 Spondylosis without myelopathy or radiculopathy, lumbar region; I87.8 Other specified disorders of veins ==

== ENCOUNTER 2024-04-23 12:04 | Emergency (ER) | payer OTHER, MEDICAID ==
[~2024-04-23] VITALS: Ht 152.4 cm; Wt 43.1 kg
[2024-04-23 12:33] LABS: BASO % 0.7 % (0.0-1.0); EOS # 0.1 10*3/uL (0.0-0.4); EOS % 2.7 % (1.0-4.0); HEMATOCRIT 31.9 % (37.0-47.0); LYMPH # 2.1 10*3/uL (1.3-4.4); LYMPH % 50.1 % (27.0-41.0); MEAN CELL VOLUME 100.9 fl (81.0-99.0); MEAN CORPUSCULAR HGB CONC 31.7 g/dl (33.0-37.0); MEAN PLATELET VOLUME 9.6 fl (9.6-12.3); MONO # 0.3 10*3/uL (0.1-1.0); MONO % 6.3 % (3.0-9.0); NEUT # 1.7 10*3/uL (2.3-7.9); PLATELET COUNT AUTOMATED 197 10*3/uL (130-400); RED BLOOD COUNT 3.16 10*6/uL (4.10-5.10); RED CELL DISTRI WIDTH 12.9 % (0-14.5); WHITE BLOOD COUNT 4.2 10*3/uL (4.8-10.8)
[2024-04-23 13:01] LABS: ALKALINE PHOSPHATASE 48 U/L (46-116); BUN 20 mg/dl (9-23); CHLORIDE 108 mmol/L (98-107); CPK 43 U/L (34-171); POTASSIUM 3.5 mmol/L (3.4-5.1); TOTAL PROTEIN 5.6 gm/dL (6.0-8.0)
[2024-04-23] MEDS ORDERED: OYSTER SHELL 51 EAC5 PO (13:02)
[2024-04-23] MEDS ORDERED: FAMOTIDINE20 M1 PO (13:03)
[2024-04-23] MEDS ORDERED: CITALOPRAM20 MG PO (13:03)
[2024-04-23 13:04] LABS: SGPT/ALT < 7 U/L (5-49)
[2024-04-23 15:17] LABS: BILIRUBIN Negative (Negative); BLOOD 1+ (Negative); CLARITY Turbid (Clear); COLOR Yellow (Yellow); GLUCOSE Negative (Negative); KETONE Negative (Negative); LEUKO ESTERASE 3+ (Negative); NITRITE Negative (Negative)
[2024-04-23 15:36] LABS: BACTERIA 1+; RBC 21-30 rbc/hpf (0-2); WBC 41-50 wbc/hpf (0-5); YEAST 1+
[2024-04-23] MEDS ORDERED: MACROBID100 M1 PO (15:44)
== END 2024-04-23 16:04 | disposition home or self-care (01) ==
LOC: ED 12:04
PROVIDERS: Physician Assistant Medical
DX: N39.0 Urinary tract infection, site not specified (principal); M19.90 Unspecified osteoarthritis, unspecified site; F41.9 Anxiety disorder, unspecified; F03.90 Unspecified dementia, unspecified severity, without behavioral disturbance, psychotic disturbance, mood disturbance, and anxiety; I12.9 Hypertensive chronic kidney disease with stage 1 through stage 4 chronic kidney disease, or unspecified chronic kidney disease; N18.9 Chronic kidney disease, unspecified; Z98.51 Tubal ligation status; Z98.890 Other specified postprocedural states; Z95.5 Presence of coronary angioplasty implant and graft

== ENCOUNTER → 2024-05-17 | Outpatient (CLI) | payer OTHER, MEDICAID ==
[~2024-05-17] MED LIST changes: +CITALOPRAM20 MG PO; +FAMOTIDINE20 M1 PO; +MACROBID100 M1 PO; +MELOXICAM7.5 MG PO; +NORVASC5 MG PO; +OYSTER SHELL 51 EAC5 PO
[2024-05-17 08:30] LABS: HEMATOCRIT 31.3 % (37.0-47.0); MEAN CELL VOLUME 99.7 fl (81.0-99.0); MEAN CORPUSCULAR HGB 32.2 pg (27.0-31.0); MEAN CORPUSCULAR HGB CONC 32.3 g/dl (33.0-37.0); MEAN PLATELET VOLUME 9.6 fl (9.6-12.3); RED BLOOD COUNT 3.14 10*6/uL (4.10-5.10); RED CELL DISTRI WIDTH 13.1 % (0-14.5); WHITE BLOOD COUNT 4.9 10*3/uL (4.8-10.8)
[2024-05-17 08:58] LABS: POTASSIUM 3.6 mmol/L (3.4-5.1); TOTAL PROTEIN 5.8 gm/dL (6.0-8.0)
== END | disposition home or self-care (01) ==
LOC: LAB 07:59
PROVIDERS: ATTEND Family Medicine
DX: K21.9 Gastro-esophageal reflux disease without esophagitis (principal); M79.643 Pain in unspecified hand; M10.9 Gout, unspecified

== ENCOUNTER 2024-06-15 18:06 | Emergency (ER) | payer OTHER, MEDICAID ==
[~2024-06-15] VITALS: Ht 167.6 cm; Wt 46.3 kg
[2024-06-15 20:08] LABS: BASO % 0.3 % (0.0-1.0); EOS % 0.6 % (1.0-4.0); HEMATOCRIT 28.2 % (37.0-47.0); LYMPH # 1.2 10*3/uL (1.3-4.4); LYMPH % 17.2 % (27.0-41.0); MEAN CELL VOLUME 103.7 fl (81.0-99.0); MEAN CORPUSCULAR HGB 32.7 pg (27.0-31.0); MEAN CORPUSCULAR HGB CONC 31.6 g/dl (33.0-37.0); MEAN PLATELET VOLUME 9.1 fl (9.6-12.3); MONO # 0.5 10*3/uL (0.1-1.0); MONO % 7.2 % (3.0-9.0); NEUT % 74.4 % (47.0-73.0); PLATELET COUNT AUTOMATED 203 10*3/uL (130-400); RED BLOOD COUNT 2.72 10*6/uL (4.10-5.10); RED CELL DISTRI WIDTH 13.5 % (0-14.5); WHITE BLOOD COUNT 6.8 10*3/uL (4.8-10.8)
[2024-06-15 20:29] LABS: POTASSIUM 3.6 mmol/L (3.4-5.1)
== END 2024-06-15 22:42 | disposition home or self-care (01) ==
LOC: ED 18:06
PROVIDERS: Nurse Practitioner
DX: S20.211A Contusion of right front wall of thorax, initial encounter (principal); S50.01XA Contusion of right elbow, initial encounter; I10 Essential (primary) hypertension; F41.9 Anxiety disorder, unspecified; F03.90 Unspecified dementia, unspecified severity, without behavioral disturbance, psychotic disturbance, mood disturbance, and anxiety; Z98.51 Tubal ligation status; Z95.5 Presence of coronary angioplasty implant and graft; Z98.890 Other specified postprocedural states; W06.XXXA Fall from bed, initial encounter; Y93.89 Activity, other specified; Y92.89 Other specified places as the place of occurrence of the external cause; Y99.8 Other external cause status

== ENCOUNTER 2024-06-24 12:08 | Emergency (ER) | payer OTHER, MEDICAID ==
[2024-06-24] MEDS ORDERED: SODIUM CHLORIDE 0.9% 1,000 ML IV ONE (12:25)
[2024-06-24] MEDS ORDERED: Ondansetron Hydrochloride 4 MG/2 ML VIAL IV ONE (12:25)
[2024-06-24] MEDS ORDERED: MORPHINE Sulfate 2 MG/ML SYR IV ONE ×2 (12:25→13:35)
[2024-06-24 12:44] LABS: BASO % 0.7 % (0.0-1.0); EOS # 0.2 10*3/uL (0.0-0.4); EOS % 2.8 % (1.0-4.0); HEMATOCRIT 26.9 % (37.0-47.0); LYMPH # 2.2 10*3/uL (1.3-4.4); LYMPH % 41.6 % (27.0-41.0); MEAN CELL VOLUME 101.9 fl (81.0-99.0); MEAN CORPUSCULAR HGB CONC 32.3 g/dl (33.0-37.0); MEAN PLATELET VOLUME 8.6 fl (9.6-12.3); MONO # 0.5 10*3/uL (0.1-1.0); MONO % 8.7 % (3.0-9.0); NEUT # 2.5 10*3/uL (2.3-7.9); PLATELET COUNT AUTOMATED 240 10*3/uL (130-400); RED BLOOD COUNT 2.64 10*6/uL (4.10-5.10); RED CELL DISTRI WIDTH 13.2 % (0-14.5); WHITE BLOOD COUNT 5.4 10*3/uL (4.8-10.8)
[2024-06-24 13:05] LABS: ALKALINE PHOSPHATASE 60 U/L (46-116); BUN 24 mg/dl (9-23); CHLORIDE 105 mmol/L (98-107); POTASSIUM 3.4 mmol/L (3.4-5.1); TOTAL PROTEIN 5.8 gm/dL (6.0-8.0)
[2024-06-24 13:15] LABS: SGPT/ALT < 7 U/L (5-49)
[2024-06-24] MEDS ORDERED: Iodixanol 320 100 ML VIAL IV ONE (13:35)
[2024-06-24] MEDS ORDERED: Iodixanol 320 100 ML VIAL ONE (13:53)
[2024-06-24] MEDS ORDERED: PEPCID20 MG PO (14:55)
[2024-06-24] MEDS ORDERED: MIRALAX POWDER17 G1 PO (14:55)
== END 2024-06-24 15:13 | disposition home or self-care (01) ==
LOC: ED 12:08
PROVIDERS: Emergency Medicine
DX: K59.00 Constipation, unspecified (principal); K44.9 Diaphragmatic hernia without obstruction or gangrene; F03.90 Unspecified dementia, unspecified severity, without behavioral disturbance, psychotic disturbance, mood disturbance, and anxiety; I10 Essential (primary) hypertension; F41.9 Anxiety disorder, unspecified; Z98.51 Tubal ligation status; Z95.5 Presence of coronary angioplasty implant and graft; Z98.890 Other specified postprocedural states

== ENCOUNTER 2024-07-11 15:41 | Emergency (ER) | payer OTHER, MEDICAID ==
[~2024-07-11] VITALS: Wt 41.7 kg
[~2024-07-11 15:41] MED LIST changes: +MIRALAX POWDER17 G1 PO; +PEPCID20 MG PO; +SEROQUEL25 MG PO
[2024-07-11 16:13] LABS: BASO % 0.7 % (0.0-1.0); EOS # 0.1 10*3/uL (0.0-0.4); EOS % 2.2 % (1.0-4.0); HEMATOCRIT 34.2 % (37.0-47.0); LYMPH # 2.5 10*3/uL (1.3-4.4); LYMPH % 41.6 % (27.0-41.0); MEAN CORPUSCULAR HGB 32.8 pg (27.0-31.0); MEAN CORPUSCULAR HGB CONC 31.9 g/dl (33.0-37.0); MEAN PLATELET VOLUME 8.6 fl (9.6-12.3); MONO # 0.4 10*3/uL (0.1-1.0); MONO % 6.3 % (3.0-9.0); NEUT # 2.9 10*3/uL (2.3-7.9); NEUT % 48.9 % (47.0-73.0); PLATELET COUNT AUTOMATED 324 10*3/uL (130-400); RED BLOOD COUNT 3.32 10*6/uL (4.10-5.10); RED CELL DISTRI WIDTH 12.9 % (0-14.5); WHITE BLOOD COUNT 5.9 10*3/uL (4.8-10.8)
[2024-07-11 16:27] LABS: POTASSIUM 5.6 mmol/L (3.4-5.1)
[2024-07-11] MEDS ORDERED: FUROSEMIDE 40 MG TAB PO ONE (17:30)
== END 2024-07-11 18:29 | disposition home or self-care (01) ==
LOC: ED 15:41
PROVIDERS: Physician Assistant Medical
DX: I12.9 Hypertensive chronic kidney disease with stage 1 through stage 4 chronic kidney disease, or unspecified chronic kidney disease (principal); N18.30 Chronic kidney disease, stage 3 unspecified; E87.5 Hyperkalemia; F03.90 Unspecified dementia, unspecified severity, without behavioral disturbance, psychotic disturbance, mood disturbance, and anxiety; F41.9 Anxiety disorder, unspecified; J44.9 Chronic obstructive pulmonary disease, unspecified; Z79.899 Other long term (current) drug therapy; Z98.51 Tubal ligation status; Z04.3 Encounter for examination and observation following other accident

== ENCOUNTER 2024-12-02 10:52 | Inpatient (IN) | payer OTHER ==
[~2024-12-02] VITALS: Ht 149.9 cm; Wt 40.6 kg
[~2024-12-02 10:52] MED LIST changes: +GABAPENTIN100 M2 PO; +REMERON15 M2 PO
[2024-12-02 10:55] VITALS: BP 118/63
[2024-12-02] MEDS ORDERED: SODIUM CHLORIDE 0.9% 1,000 ML IV ONE ×2 (12:10→18:50)
[2024-12-02 12:35] LABS: BASO % 0.1 % (0.0-1.0); EOS % 0.1 % (1.0-4.0); HEMATOCRIT 35.1 % (37.0-47.0); MEAN CELL VOLUME 95.4 fl (81.0-99.0); MEAN CORPUSCULAR HGB 30.7 pg (27.0-31.0); MEAN CORPUSCULAR HGB CONC 32.2 g/dl (33.0-37.0); MEAN PLATELET VOLUME 9.6 fl (9.6-12.3); MONO # 0.6 10*3/uL (0.1-1.0); MONO % 3.8 % (3.0-9.0); NEUT # 13.9 10*3/uL (2.3-7.9); NEUT % 82.7 % (47.0-73.0); PLATELET COUNT AUTOMATED 318 10*3/uL (130-400); RED BLOOD COUNT 3.68 10*6/uL (4.10-5.10); RED CELL DISTRI WIDTH 13.2 % (0-14.5); WHITE BLOOD COUNT 16.8 10*3/uL (4.8-10.8)
[2024-12-02 12:59] LABS: POTASSIUM 4.4 mmol/L (3.4-5.1); TOTAL PROTEIN 6.7 gm/dL (6.0-8.0)
[2024-12-02] MEDS ORDERED: IOHEXOL 300 MG/ML 100 ML VIAL IV ONE (13:00)
[2024-12-02 13:16] LABS: BILIRUBIN Negative (Negative); BLOOD 1+ (Negative); CLARITY Cloudy (Clear); COLOR Yellow (Yellow); GLUCOSE Negative (Negative); KETONE Negative (Negative); LEUKO ESTERASE 3+ (Negative); NITRITE Negative (Negative); PH 5.5 (4.5-8.0); UROBILINOGEN 0.2 E.U./dl (0.0-1.0)
[2024-12-02 13:33] LABS: WBC TNTC wbc/hpf (0-5); YEAST 1+
[2024-12-02 13:34] LABS: BACTERIA 4+
[2024-12-02] MEDS ORDERED: Ceftriaxone Sodium 1 GM/10 ML SYR IV ONE (13:40)
[2024-12-02 14:30] VITALS: BP 118/62
[2024-12-02 17:09] VITALS: BP 120/68
[2024-12-02 17:40] VITALS: BP 158/60
[2024-12-02 20:00] VITALS: BP 126/46
[2024-12-02] MEDS ORDERED: GABAPENTIN 100 MG CAP PO SCH (22:00)
[2024-12-02] MEDS ORDERED: QUETIAPINE FUMARATE 25 MG TAB PO SCH (22:00)
[2024-12-02] MEDS ORDERED: FAMOTIDINE 20 MG TAB PO SCH (22:00)
[2024-12-02] MEDS ORDERED: Mirtazapine 15 MG TAB PO SCH (22:00)
[2024-12-03] VITALS: BP 144/75
[2024-12-03 06:23] LABS: BASO % 0.1 % (0.0-1.0); EOS # 0.1 10*3/uL (0.0-0.4); EOS % 1.3 % (1.0-4.0); HEMATOCRIT 33.8 % (37.0-47.0); MEAN CELL VOLUME 94.4 fl (81.0-99.0); MEAN CORPUSCULAR HGB 29.9 pg (27.0-31.0); MEAN CORPUSCULAR HGB CONC 31.7 g/dl (33.0-37.0); MONO # 0.4 10*3/uL (0.1-1.0); MONO % 4.1 % (3.0-9.0); NEUT # 6.6 10*3/uL (2.3-7.9); NEUT % 76.5 % (47.0-73.0); PLATELET COUNT AUTOMATED 277 10*3/uL (130-400); RED BLOOD COUNT 3.58 10*6/uL (4.10-5.10); RED CELL DISTRI WIDTH 13.1 % (0-14.5); WHITE BLOOD COUNT 8.6 10*3/uL (4.8-10.8)
[2024-12-03 08:00] VITALS: BP 158/55
[2024-12-03] MEDS ORDERED: Meloxicam 15 MG TAB PO SCH (10:00)
[2024-12-03 12:00] VITALS: BP 154/43
[2024-12-03] MEDS ORDERED: SODIUM CHLORIDE 0.9% 1,000 ML IV ONE (13:35)
[2024-12-03] MEDS ORDERED: Ceftriaxone Sodium 1 GM,IV 1 EA in SYRINGE INFUSION 10 ML IV SCH (14:00)
[2024-12-03] MEDS ORDERED: Menthol/Zinc Oxide 4 GM THIN T PRN (14:00)
[2024-12-03 16:00] VITALS: BP 136/47
[2024-12-03 20:00] VITALS: BP 186/56
[2024-12-03] MEDS ORDERED: Menthol/Zinc Oxide 4 GM THIN T SCH (22:00)
[2024-12-04] VITALS: BP 146/54
[2024-12-04 06:19] LABS: BASO % 0.1 % (0.0-1.0); EOS # 0.1 10*3/uL (0.0-0.4); EOS % 1.6 % (1.0-4.0); HEMATOCRIT 31.1 % (37.0-47.0); MEAN CELL VOLUME 96.3 fl (81.0-99.0); MEAN CORPUSCULAR HGB 30.7 pg (27.0-31.0); MEAN CORPUSCULAR HGB CONC 31.8 g/dl (33.0-37.0); MEAN PLATELET VOLUME 9.8 fl (9.6-12.3); MONO # 0.5 10*3/uL (0.1-1.0); MONO % 5.7 % (3.0-9.0); NEUT # 3.9 10*3/uL (2.3-7.9); NEUT % 46.9 % (47.0-73.0); PLATELET COUNT AUTOMATED 267 10*3/uL (130-400); RED BLOOD COUNT 3.23 10*6/uL (4.10-5.10); RED CELL DISTRI WIDTH 13.3 % (0-14.5); WHITE BLOOD COUNT 8.4 10*3/uL (4.8-10.8)
[2024-12-04 07:08] LABS: POTASSIUM 4.3 mmol/L (3.4-5.1)
[2024-12-04 08:00] VITALS: BP 154/57
[2024-12-04 12:00] VITALS: BP 142/50
[2024-12-04 16:00] VITALS: BP 144/62
[2024-12-04 20:00] VITALS: BP 131/84
[2024-12-05] VITALS: BP 148/92
[2024-12-05 06:46] LABS: BASO % 0.1 % (0.0-1.0); EOS # 0.1 10*3/uL (0.0-0.4); EOS % 1.2 % (1.0-4.0); HEMATOCRIT 36.2 % (37.0-47.0); MEAN CORPUSCULAR HGB 29.9 pg (27.0-31.0); MEAN CORPUSCULAR HGB CONC 31.5 g/dl (33.0-37.0); MEAN PLATELET VOLUME 9.7 fl (9.6-12.3); MONO # 0.5 10*3/uL (0.1-1.0); MONO % 5.8 % (3.0-9.0); NEUT # 4.5 10*3/uL (2.3-7.9); NEUT % 52.1 % (47.0-73.0); PLATELET COUNT AUTOMATED 303 10*3/uL (130-400); RED BLOOD COUNT 3.81 10*6/uL (4.10-5.10); RED CELL DISTRI WIDTH 13.6 % (0-14.5); WHITE BLOOD COUNT 8.6 10*3/uL (4.8-10.8)
[2024-12-05 08:00] VITALS: BP 125/73
[2024-12-05 12:00] VITALS: BP 105/54
[2024-12-05 15:36] VITALS: BP 127/86
[2024-12-05 20:00] VITALS: BP 123/85
[2024-12-06] VITALS: BP 146/60
[2024-12-06] MEDS ORDERED: HEEL PROTECTOR DEVICE ONE (02:16)
[2024-12-06 08:00] VITALS: BP 134/70
[2024-12-06] MEDS ORDERED: LINEZOLID 600 MG TAB PO SCH (10:22)
[2024-12-06 12:00] VITALS: BP 137/72
[2024-12-06 16:00] VITALS: BP 131/51
[2024-12-06 20:00] VITALS: BP 149/75
[2024-12-06] MEDS ORDERED: Mirtazapine 15 MG TAB PO SCH (22:00)
[2024-12-07] VITALS: BP 149/75
[2024-12-07 08:00] VITALS: BP 137/72
[2024-12-07 12:00] VITALS: BP 133/70
[2024-12-07] MEDS ORDERED: LINEZOLID600 MG PO (12:27)
== END 2024-12-07 16:11 | DRG 682 ==
LOC: ED 10:52 → EDHOLD 15:11 → 4E 15:11
PROVIDERS: Nurse Practitioner; ADMIT Internal Medicine; ATTEND Internal Medicine
DX: N17.0 Acute kidney failure with tubular necrosis (principal); G93.41 Metabolic encephalopathy; F02.818 Dementia in other diseases classified elsewhere, unspecified severity, with other behavioral disturbance; N30.00 Acute cystitis without hematuria; Z68.1 Body mass index [BMI] 19.9 or less, adult; R62.7 Adult failure to thrive; G30.1 Alzheimer's disease with late onset; E78.2 Mixed hyperlipidemia; J44.9 Chronic obstructive pulmonary disease, unspecified; F41.1 Generalized anxiety disorder; I12.9 Hypertensive chronic kidney disease with stage 1 through stage 4 chronic kidney disease, or unspecified chronic kidney disease; N18.32 Chronic kidney disease, stage 3b; D64.9 Anemia, unspecified; E87.5 Hyperkalemia; B95.2 Enterococcus as the cause of diseases classified elsewhere; K44.9 Diaphragmatic hernia without obstruction or gangrene

== ENCOUNTER 2025-03-16 12:25 | Emergency (ER) | payer OTHER ==
[~2025-03-16] VITALS: Ht 157.4 cm; Wt 43.1 kg
[~2025-03-16 12:25] MED LIST changes: +AMLODIPINE BES2.5 MG PO; +CEFUROXIME AXE250 MG PO; +HYDROXYZINE PAM25 M1 PO; +LINEZOLID600 MG PO; +RISPERIDONE0.5 MG PO
[2025-03-16] MEDS ORDERED: DIVALPROEX SOD125 M1 PO (12:53)
[2025-03-16] MEDS ORDERED: RIVASTIGMINE1 EACH TD (12:53)
[2025-03-16] MEDS ORDERED: Synthroid,Levo25 MCG PO (12:54)
== END 2025-03-16 14:12 ==
LOC: ED 12:25
DX: S01.81XA Laceration without foreign body of other part of head, initial encounter (principal); F03.90 Unspecified dementia, unspecified severity, without behavioral disturbance, psychotic disturbance, mood disturbance, and anxiety; Z79.899 Other long term (current) drug therapy; W05.0XXA Fall from non-moving wheelchair, initial encounter; Y93.89 Activity, other specified; Y92.89 Other specified places as the place of occurrence of the external cause; Y99.8 Other external cause status